=== PATIENT | female | born 1945 | race Caucasian/White ===

== ENCOUNTER 2018-06-08 07:44 | Day surgery (SDC) | payer MEDICARE, OTHER ==
--- NOTE | 2018-06-08 07:04 | PCM.HP ---
H&P History of Present Illness - General Date of Service: 06/08/18 Admit Problem/Dx: positive FIT, family hx of colon cancer Source of Information: Patient - History of Present Illness Initial Comments - Free Text/Narative: The patient is a 73-year-old female referred by Dr. Mina for positive FIT The patient presents today for diagnostic colonoscopy. She was last evaluated in the clinic on 04/24. She denies changes to her medical history since that visit, with the exception of starting Lasix on 04/25 for lower leg edema after starting Prednisone. She did complete the colonoscopy prep. Stools were yellow . The patient denies any constipation/ diarrhea/ hematochezia/ melena/blood on tissue paper/hemorrhoids. Has 1soft, brown, formed, BMs daily. Bowel movements are described as regular and easy to pass. No unintentional weight loss. No change in stool caliber. No abdominal pain. Denies history of ulcerative colitis or Crohn's disease. Denies any family history of inflammatory bowel disease. Her mother had colon cancer. Last colonoscopy was never. No history of reflux, heartburn, nausea, vomiting, or dysphagia. Last EGD was never. - Related Data Allergies/Adverse Reactions: Allergies Allergy/AdvReac Type Severity Reaction Status Date / Time canagliflozin [From Invokana] Allergy Rash Verified 06/07/18 14:39 doxycycline Allergy Diarrhea Verified 06/07/18 14:39 latex Allergy Hives Verified 06/07/18 14:39 Home Medications: Home Meds Allopurinol 100 mg PO Q48H 12/20/16 [History] Alpha Lipoic Acid 600 mg PO QPM 12/20/16 [History] Amitriptyline [Elavil] 25 mg PO DAILY 12/20/16 [History] Insulin Aspart [NovoLOG] 1 unit SQ ASDIRECTED 12/20/16 [History] Liraglutide [Victoza] 1.8 mg SQ DAILY 12/20/16 [History] Losartan [Cozaar] 50 mg PO DAILY 12/20/16 [History] Simvastatin 40 mg PO DAILY 12/20/16 [History] Aspirin [Stebbins Aspirin] 81 mg PO DAILY 06/07/18 [History] Cholecalciferol (Vitamin D3) [Vitamin D3] 1,000 unit PO DAILY 06/07/18 [History] Estradiol [Estrace] 0.5 mg PO DAILY 06/07/18 [History] Furosemide [Lasix] 20 mg PO DAILY 06/07/18 [History] Insulin Degludec [Tresiba Flextouch U-100] 46 units SQ BEDTIME 06/07/18 [History ] Levothyroxine 75 mcg PO DAILY 06/07/18 [History] Multivitamin [Men's Multi-Vitamin] 1 tab PO DAILY 06/07/18 [History] predniSONE [Prednisone] 5 mg PO DAILY 06/07/18 [History] Past Medical History HEENT History: Reports: Impaired Vision, Other (See Below) Other HEENT History: wears glasses, has dentures Cardiovascular History: Reports: Arrhythmia, High Cholesterol, Hypertension, Other (See Below) Other Cardiovascular History: heart disease, hypotension, ventricular arrhythmia Respiratory History: Reports: Sleep Apnea, SOB, Other (See Below) Other Respiratory History: URI, emphysema Gastrointestinal History: Reports: None Genitourinary History: Reports: Other (See Below) Other Genitourinary History: vaginitis 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: , 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 Other OB/BYN History: HPV Musculoskeletal History: Reports: Gout, Other (See Below) Other Musculoskeletal History: carpal tunnel syndrome, dysarthrosis, polyosteroarthritis, polymyaglica rhematica, right sided thoracic outlet syndrome Neurological History: Reports: Other (See Below) Other Neuro History: syncope, cerviclagia, dizziness, mononeuritis, nerve repair Psychiatric History: Reports: None Endocrine/Metabolic History: Reports: Diabetes, Type II, Hypothyroidism, Vitamin D Deficiency Hematologic History: Reports: None Immunologic History: Reports: None Oncologic (Cancer) History: Reports: None Dermatologic History: Reports: Other (See Below) Other Dermatologic History: skin lesion - Infectious Disease History Infectious Disease History: Reports: None - Past Surgical History Head Surgeries/Procedures: Reports: None HEENT Surgical History: Reports: Oral Surgery Cardiovascular Surgical History: Reports: None Respiratory Surgical History: Reports: None GI Surgical History: Reports: Bariatric Procedure Female Surgical History: Reports: Hysterectomy Endocrine Surgical History: Reports: None Musculoskeletal Surgical History: Reports: Carpal Tunnel Dermatological Surgical History: Reports: None Social & Family History - Family History Family Medical History: Noncontributory Respiratory: Reports: Asthma Endocrine/Metabolic: Reports: Diabetes, type II Oncologic: Reports: Bone, Colon, Prostate, Thyroid - Tobacco Use Smoking Status *Q: Former Smoker Used Tobacco, but Quit: Yes Month/Year Tobacco Last Used: 1992 - Caffeine Use Caffeine Use: Reports: Coffee - Recreational Drug Use Recreational Drug Use: No Drug Use in Last 12 Months: No H&P Review of Systems - Review of Systems: Review Of Systems: See Below Free Text/Narrative: Denies any exertional chest pain. She has some exertional shortness of breath with stair climbing. Activity is limited due to knee pain with polymyalgia rheumatica. No history of any easy bleeding or bruising. No personal or familial history of clotting or bleeding disorders. No history of anesthetic complications. No history of familial anesthetic complications. Denies presence/history of chest pain, palpitations. Has been told she has a fast heart beat. She has noted some lower extremity edema, with prednisone use. NO: dyspnea at rest, orthopnea, claudication, wheezing. Has obstructive sleep apnea, uses CPAP. NO: chronic cough, upper respiratory symptoms in the last two weeks. No history of blood thinner use, with exception of aspirin. No history of anemia. NO: joint replacement and heart valve replacement. No history of seizure or stroke. No fever, chills, or nightsweats. No prior cardiology or pulmonology visits. EK, sinus tachycardia, low voltage precordial leads, poor R wave progression, "? LUE" per EKG printout interpretation per Dr. Mina Echo: 2015-reviewed, see prior note 04/24 Stress test: 2008. NM portion showed no exercise induced ischemia or infarct. Patient had a syncopal spell with second degree heart block induced by adenosine , mild chest pressure with no significant ST wave changes All other systems reviewed and were negative except as per history of present illness. Exam - Exam Exam: See Below - Exam General: Alert, Oriented, Cooperative HEENT: Conjunctiva Clear Lungs: Clear to Auscultation, Normal Respiratory Effort Cardiovascular: Regular Rate, Regular Rhythm, Normal S1, Normal S2 GI/Abdominal Exam: Normal Bowel Sounds, Soft, Non-Tender, Other (obese ) Back Exam: Normal Inspection Extremities: Normal Inspection, Other (BLE mild/moderate edema, trace pitting) Peripheral Pulses: 2+: Radial (L), Radial (R) Skin: Warm, Dry, Intact Neuro Extensive - Mental Status: Alert, Oriented x3, Normal Mood/Affect, Normal Cognition, Memory Intact Psychiatric: Alert, Normal Affect, Normal Mood - Problem List (1) Positive FIT (fecal immunochemical test) SNOMED Code(s): 351111057 ICD Code: R19.5 - OTHER FECAL ABNORMALITIES Status: Acute Current Visit: No (2) Family history of colon cancer SNOMED Code(s): 670506914 ICD Code: Z80.0 - FAMILY HISTORY OF MALIGNANT NEOPLASM OF DIGESTIVE ORGANS Status: Acute Current Visit: No Problem List Initiated/Reviewed/Updated: Yes Orders Last 24hrs: Active Orders 24 hr Category Date Time Status Blood Glucose Check, Bedside [] ONETIME Care 06/08/18 00:01 Active Peripheral IV Care [] . DIRECTED Care 06/08/18 00:01 Active Verify Patient Consent Obtain [] ASDIRECTED Care 06/08/18 00:01 Active Lactated Ringers [Ringers, Lactated] 1,000 ml Med 06/08/18 00:01 Active IV ASDIRECTED Lidocaine 1%/Sod Bicarbonate [Buffered Lidocaine 1% in Med 06/08/18 00:01 Active NS 8.4%] 0.25 ml IDERM ONETIME PRN Sodium Chloride 0.9% [Saline Flush] Med 06/08/18 00:01 Active 10 ml FLUSH ASDIRECTED PRN Medication Administration Instruction [OM.PC] Routine Oth 06/08/18 00:01 Ordered Peripheral IV Insertion Adult [OM.PC] Routine Oth 06/08/18 00:01 Ordered Medication Orders Lactated Ringer's (Ringers, Lactated) 1,000 mls @ 125 mls/hr IV ASDIRECTED YAEL Stop: 06/08/18 23:00 Lidocaine/Sodium Bicarbonate (Buffered Lidocaine 1% In Ns 8.4%) 0.25 ml IDERM ONETIME PRN PRN Reason: Prior to IV Start Stop: 06/08/18 18:00 Sodium Chloride (Saline Flush) 10 ml FLUSH ASDIRECTED PRN PRN Reason: Keep Vein Open Stop: 06/08/18 18:00 Assessment/Plan Comment:: 73yr female with positive FIT, family hx of colon cancer, need for diagnostic colonoscopy Denies exertionalchest pain. Has exertional shortness of breath with stair climbing. She is deconditioned. Sleep apnea, chronic oral steroid use PLAN: We discussed performing a diagnostic colonoscopy. We discussed the procedure and post operative expectations. This procedure will be done at [facility] due to BMI 40.01. Previously -Discussed completing EGD due to positive FIT, patient declined. I personally reviewed the patient's previous medical records and laboratory studies. Patient verbalized understanding and agreed with care plan. HOPE [facility]
[~2018-06-08 07:44] MED LIST: Lactated Ringers 1,000 ML IV SCH; Lidocaine 1% 4 ML ONE; Lidocaine 1%/Sod Bicarbonate in NS 8.4% 1 ML Syringe IDERM PRN; Propofol 200 MG/20 ML SDV ONE; Sodium Chloride 0.9% 10 ML Syringe FLUSH PRN; fentaNYL 100 MCG/2 ML SDV ONE
--- NOTE | 2018-06-08 08:24 | PCM.PREANE ---
Preanesthetic Assessment - Anesthesia/Transfusion/Family Hx Anesthesia History: Prior Anesthesia Without Reaction Family History of Anesthesia Reaction: No Transfusion History: No Prior Transfusion(s) - Review of Systems General: Fatigue Pulmonary: No Symptoms Cardiovascular: No Symptoms Gastrointestinal: No Symptoms Neurological: Numbness (fingers) Other: Reports: Diabetes (123 this am), Thyroid Problems - Physical Assessment NPO Status Date: 06/07/18 NPO Status Time: 00:00 Pulse: 94 O2 Sat by Pulse Oximetry: 96 Respiratory Rate: 18 Blood Pressure: 136/56 Temperature: 36.3 C Height: 1.47 m Weight: 86.183 kg ASA Class: 3 Mental Status: Alert & Oriented x3 Airway Class: Mallampati = 3 Dentition: Reports: Dentures Thyro-Mental Finger Breadths: 2 Mouth Opening Finger Breadths: 2 ROM/Head Extension: Full Lungs: Clear to Auscultation, Normal Respiratory Effort Cardiovascular: Regular Rate, Regular Rhythm - Allergies Allergies/Adverse Reactions: Allergies Allergy/AdvReac Type Severity Reaction Status Date / Time canagliflozin [From Invokana] Allergy Rash Verified 06/07/18 14:39 doxycycline Allergy Diarrhea Verified 06/07/18 14:39 latex Allergy Hives Verified 06/07/18 14:39 - Blood Blood Available: No Product(s) Available: None - Anesthesia Plan Pre-Op Medication Ordered: None - Acknowledgements Anesthesia Type Planned: MAC Pt an Appropriate Candidate for the Planned Anesthesia: Yes Alternatives and Risks of Anesthesia Discussed w Pt/Guardian: Yes Pt/Guardian Understands and Agrees with Anesthesia Plan: Yes PreAnesthesia Questionnaire HEENT History: Reports: Impaired Vision, Other (See Below) Other HEENT History: wears glasses, has dentures Cardiovascular History: Reports: Arrhythmia, High Cholesterol, Hypertension, Other (See Below) Other Cardiovascular History: heart disease, hypotension, ventricular arrhythmia Respiratory History: Reports: Sleep Apnea, SOB, Other (See Below) Other Respiratory History: URI, emphysema Gastrointestinal History: Reports: None Genitourinary History: Reports: Other (See Below) Other Genitourinary History: vaginitis 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: , 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 Other OB/BYN History: HPV Musculoskeletal History: Reports: Gout, Other (See Below) Other Musculoskeletal History: carpal tunnel syndrome, dysarthrosis, polyosteroarthritis, polymyaglica rhematica, right sided thoracic outlet syndrome Neurological History: Reports: Other (See Below) Other Neuro History: syncope, cerviclagia, dizziness, mononeuritis, nerve repair Psychiatric History: Reports: None Endocrine/Metabolic History: Reports: Diabetes, Type II, Hypothyroidism, Vitamin D Deficiency Hematologic History: Reports: None Immunologic History: Reports: None Oncologic (Cancer) History: Reports: None Dermatologic History: Reports: Other (See Below) Other Dermatologic History: skin lesion - Infectious Disease History Infectious Disease History: Reports: None - Past Surgical History Head Surgeries/Procedures: Reports: None HEENT Surgical History: Reports: Oral Surgery Cardiovascular Surgical History: Reports: None Respiratory Surgical History: Reports: None GI Surgical History: Reports: Bariatric Procedure Female Surgical History: Reports: Hysterectomy Endocrine Surgical History: Reports: None Musculoskeletal Surgical History: Reports: Carpal Tunnel Dermatological Surgical History: Reports: None - SUBSTANCE USE Smoking Status *Q: Former Smoker Recreational Drug Use History: No - HOME MEDS Home Medications: Home Meds Allopurinol 100 mg PO Q48H 12/20/16 [History] Alpha Lipoic Acid 600 mg PO QPM 12/20/16 [History] Amitriptyline [Elavil] 25 mg PO DAILY 12/20/16 [History] Insulin Aspart [NovoLOG] 1 unit SQ ASDIRECTED 12/20/16 [History] Liraglutide [Victoza] 1.8 mg SQ DAILY 12/20/16 [History] Losartan [Cozaar] 50 mg PO DAILY 12/20/16 [History] Simvastatin 40 mg PO DAILY 12/20/16 [History] Aspirin [Darden Aspirin] 81 mg PO DAILY 06/07/18 [History] Cholecalciferol (Vitamin D3) [Vitamin D3] 1,000 unit PO DAILY 06/07/18 [History] Estradiol [Estrace] 0.5 mg PO DAILY 06/07/18 [History] Furosemide [Lasix] 20 mg PO DAILY 06/07/18 [History] Insulin Degludec [Tresiba Flextouch U-100] 46 units SQ BEDTIME 06/07/18 [History ] Levothyroxine 75 mcg PO DAILY 06/07/18 [History] Multivitamin [Men's Multi-Vitamin] 1 tab PO DAILY 06/07/18 [History] predniSONE [Prednisone] 5 mg PO DAILY 06/07/18 [History] - CURRENT (IN HOUSE) MEDS Current Meds: Current Medications Lactated Ringer's (Ringers, Lactated) 1,000 mls @ 125 mls/hr IV ASDIRECTED YAEL Stop: 06/08/18 23:00 Lidocaine/Sodium Bicarbonate (Buffered Lidocaine 1% In Ns 8.4%) 0.25 ml IDERM ONETIME PRN PRN Reason: Prior to IV Start Stop: 06/08/18 18:00 Sodium Chloride (Saline Flush) 10 ml FLUSH ASDIRECTED PRN PRN Reason: Keep Vein Open Stop: 06/08/18 18:00 Discontinued Medications Fentanyl (Sublimaze) Confirm Administered Dose 100 mcg .ROUTE .STK-MED ONE Stop: 06/08/18 07:37 Lidocaine HCl (Xylocaine-Mpf 1%) Confirm Administered Dose 4 mls @ as directed .ROUTE .STK-MED ONE Stop: 06/08/18 07:42 Propofol (Diprivan 20 Ml) Confirm Administered Dose 200 mg .ROUTE .STK-MED ONE Stop: 06/08/18 07:37
[2018-06-08] MEDS ORDERED: Midazolam 1 MG/ML 2 ML SDV ONE (08:31)
[2018-06-08] MEDS ORDERED: Propofol 200 MG/20 ML SDV ONE ×2 (08:31→09:23)
[2018-06-08] MEDS ORDERED: fentaNYL 100 MCG/2 ML SDV ONE (08:31)
--- NOTE | 2018-06-08 09:53 | PCM.OPNOTE ---
- General Post-Op/Procedure Note Date of Surgery/Procedure: 06/08/18 Operative Procedure(s): colonoscopy to cecum polypectomy times 2 Pre Op Diagnosis: positive fit test Post-Op Diagnosis: Same Anesthesia Technique: MAC Primary Surgeon: Micheal Jeff EBL in mLs: 0 Complications: None Condition: Good
--- NOTE | 2018-06-08 09:55 | PCM48HPAN ---
Post Anesthesia Note - EVALUATION WITHIN 48HRS OF ANESTHETIC Vital Signs in Normal Range: Yes Patient Participated in Evaluation: Yes Respiratory Function Stable: Yes Airway Patent: Yes Cardiovascular Function Stable: Yes Hydration Status Stable: Yes Pain Control Satisfactory: Yes Nausea and Vomiting Control Satisfactory: Yes Mental Status Recovered: Yes Pulse Rate: 99 SaO2: 95 Resp Rate: 18 Temperature: 36.1 C Blood Pressure: 126/69
[2018-06-08 10:32] VITALS: BP 112/58
--- NOTE | 2018-06-08 15:23 | OR ---
DATE OF OPERATION: 06/08/2018 SURGEON: Micheal Jeff MD PREOPERATIVE DIAGNOSIS: Positive FIT test. POSTOPERATIVE DIAGNOSIS: Positive FIT test. OPERATION PERFORMED: Colonoscopy to cecum with polypectomy x2. Removal of two 1 cm polyps in the ascending colon adjacent to each other. The polyps were removed by cautery snare and were complete. ANESTHESIA: Procedure done under IV sedation. FINDINGS: Two colonic polyps in the ascending colon, each about 1 cm, and had a broad base. There were no angiodysplasias, large tumor masses, ulcerations, diverticulum, or notable hemorrhoids. DESCRIPTION OF PROCEDURE: The patient was taken to the endoscopy room, placed in a supine position, connected to monitoring equipment, given IV sedation, and placed in the left lateral position. Perianal area was inspected and was normal. Rectal exam showed good sphincter tone. A video Olympus colonoscope was then introduced into the rectum and threaded up without problem to the cecum, where the appendicular orifice was noted and photographed. Prep was excellent. [place] cleansing score grade A. The scope was slowly withdrawn showing the cecum, ascending colon, transverse colon, descending colon, sigmoid colon, and rectum. Two polyps were noted in the ascending colon just adjacent to each other, and they both were lassoed with cautery snare and then short-burst coagulation current applied, and they were cleanly removed without any bleeding. The polyps could not be sucked up into the trap and thus were both captured with a snare with a net. They were removed and since they were adjacent to each other, they were sent in the same container. The patient tolerated the procedure, was sent to recovery room in a stable condition, and will be followed up in the clinic. ESTIMATED BLOOD LOSS: MMODAL /[id number]
== END 2018-06-08 10:39 | disposition home or self-care (01) ==
LOC: JD.SDS 07:44
PROVIDERS: ATTEND Surgery
DX: R19.5 Other fecal abnormalities (principal); D12.2 Benign neoplasm of ascending colon; I10 Essential (primary) hypertension; G47.30 Sleep apnea, unspecified; M10.9 Gout, unspecified; E03.9 Hypothyroidism, unspecified; E11.9 Type 2 diabetes mellitus without complications; E55.9 Vitamin D deficiency, unspecified; E78.00 Pure hypercholesterolemia, unspecified; Z88.1 Allergy status to other antibiotic agents; Z88.8 Allergy status to other drugs, medicaments and biological substances; Z91.040 Latex allergy status; Z79.4 Long term (current) use of insulin; Z79.82 Long term (current) use of aspirin; Z79.899 Other long term (current) drug therapy; Z87.891 Personal history of nicotine dependence; Z80.0 Family history of malignant neoplasm of digestive organs
CPT/HCPCS: 45385; J2250; J2704; J7120; 00811; J2001; J3010

== ENCOUNTER 2022-08-12 07:35 | Day surgery (SDC) | payer MEDICARE, OTHER ==
[2022-08-12] MEDS: Polymyxin B/Trimethoprim 10 ML Bottle EYERT SCH ×3 (07:25→09:01)
[2022-08-12] MEDS: Brimonidine 0.2% Ophth Soln 5 ML Bottle EYERT SCH ×3 (07:29→09:01)
[2022-08-12] MEDS: Phenylephrine 2.5% Ophth Soln 2 ML Bot EYERT SCH ×5 (07:34→08:41)
[~2022-08-12 07:35] MED LIST changes: +Cefuroxime 10 MG/ML SYRINGE EYERT SCH; -Lactated Ringers 1,000 ML IV SCH; -Lidocaine 1% 4 ML ONE; +Lidocaine 1% PF 2 ML SDV INJECT SCH; -Lidocaine 1%/Sod Bicarbonate in NS 8.4% 1 ML Syringe IDERM PRN; +Pilocarpine 4% Ophth Soln 15 ML Bot EYERT SCH; -Propofol 200 MG/20 ML SDV ONE; -Sodium Chloride 0.9% 10 ML Syringe FLUSH PRN; -fentaNYL 100 MCG/2 ML SDV ONE
[2022-08-12] MEDS: Tropicamide 1% Ophth Soln 15 ML Bottle EYERT SCH ×4 (07:37→08:12)
[2022-08-12 07:38] VITALS: PULSE 91
[2022-08-12] MEDS: Tetracaine HCl/PF 0.5% 4 ML Bottle EYEBOTH SCH ×4 (08:30→08:51)
[2022-08-12 09:18] VITALS: BP 118/67
== END 2022-08-12 09:13 | disposition home or self-care (01) ==
LOC: JD.SDS 07:35
PROVIDERS: ATTEND Ophthalmology
DX: E10.36 Type 1 diabetes mellitus with diabetic cataract (principal); E78.00 Pure hypercholesterolemia, unspecified; I10 Essential (primary) hypertension; G47.30 Sleep apnea, unspecified; E66.9 Obesity, unspecified; E03.9 Hypothyroidism, unspecified; Z91.040 Latex allergy status; Z88.8 Allergy status to other drugs, medicaments and biological substances; Z98.890 Other specified postprocedural states; Z87.891 Personal history of nicotine dependence
CPT/HCPCS: 66984; J0697; C1780

== ENCOUNTER 2022-09-09 11:08 | Day surgery (SDC) | payer MEDICARE, OTHER ==
[~2022-09-09 11:08] MED LIST changes: +Cefuroxime 10 MG/ML SYRINGE EYELF SCH; -Cefuroxime 10 MG/ML SYRINGE EYERT SCH; +Pilocarpine 4% Ophth Soln 15 ML Bot EYELF SCH; -Pilocarpine 4% Ophth Soln 15 ML Bot EYERT SCH
[2022-09-09] MEDS: Polymyxin B/Trimethoprim 10 ML Bottle EYELF SCH ×3 (11:28→13:10)
[2022-09-09] MEDS: Brimonidine 0.2% Ophth Soln 5 ML Bottle EYELF SCH ×3 (11:33→13:10)
[2022-09-09] MEDS: Phenylephrine 2.5% Ophth Soln 2 ML Bot EYELF SCH ×5 (11:37→12:50)
[2022-09-09] MEDS: Tropicamide 1% Ophth Soln 15 ML Bottle EYELF SCH ×4 (11:42→12:25)
[2022-09-09] MEDS: Tetracaine HCl/PF 0.5% 4 ML Bottle EYEBOTH SCH ×4 (12:39→12:59)
[2022-09-09 13:42] VITALS: BP 108/79; PULSE 89
== END 2022-09-09 13:29 | disposition home or self-care (01) ==
LOC: JD.SDS 11:08
PROVIDERS: ATTEND Ophthalmology
DX: E10.36 Type 1 diabetes mellitus with diabetic cataract (principal); H25.812 Combined forms of age-related cataract, left eye; H43.813 Vitreous degeneration, bilateral; M35.3 Polymyalgia rheumatica; H40.042 Steroid responder, left eye; M45.6 Ankylosing spondylitis lumbar region; I10 Essential (primary) hypertension; M19.90 Unspecified osteoarthritis, unspecified site; E78.00 Pure hypercholesterolemia, unspecified; E66.9 Obesity, unspecified; E03.9 Hypothyroidism, unspecified; Z68.36 Body mass index [BMI] 36.0-36.9, adult; Z96.1 Presence of intraocular lens; Z90.710 Acquired absence of both cervix and uterus; Z98.890 Other specified postprocedural states; Z87.891 Personal history of nicotine dependence; Z79.890 Hormone replacement therapy; Z79.899 Other long term (current) drug therapy; Z88.1 Allergy status to other antibiotic agents; Z91.040 Latex allergy status; Z79.4 Long term (current) use of insulin
CPT/HCPCS: 66984; J0697; C1780

== ENCOUNTER → 2023-05-04 | Day surgery (SDC) | payer MEDICARE, OTHER ==
[~2023-05-04] MED LIST changes: +50% Dextrose in Water 50 ML Syringe IVPUSH PRN; +Acetaminophen 325 MG Tab PO ONE; +Bupivacaine 0.5%/EPINEPHrine 1:200,000 50 ML MDV ONE; -Cefuroxime 10 MG/ML SYRINGE EYELF SCH; +Dexamethasone 4 MG/ML 5 ML MDV ONE; +Dextrose 5%-Lactated Ringers 1,000 ML IV SCH; +Gabapentin 300 MG Cap PO SCH; +HYDROmorphone 0.5 MG/0.5 ML Syringe IVPUSH PRN; +Lactated Ringers 1,000 ML IV SCH; +Lidocaine 1% 2 ML ONE; +Lidocaine 1% 30 ML SDV ONE; -Lidocaine 1% PF 2 ML SDV INJECT SCH; +Midazolam 1 MG/ML 2 ML SDV ONE; +Ondansetron 4 MG/2 ML SDV IVPUSH PRN; +Ondansetron 4 MG/2 ML SDV ONE; -Pilocarpine 4% Ophth Soln 15 ML Bot EYELF SCH; +Propofol 200 MG/20 ML SDV ONE; +Rocuronium 50 MG/5 ML Vial ONE; +Sodium Chloride 0.9% 10 ML Syringe FLUSH PRN; +Sodium Chloride 0.9% 10 ML Syringe FLUSH SCH; +Sugammadex Sodium 200 MG/2 ML VIAL ONE; +ceFAZolin 2 GM Vial ONE; +fentaNYL 100 MCG/2 ML SDV IVPUSH PRN; +fentaNYL 100 MCG/2 ML SDV ONE
[2023-05-04 17:56] VITALS: BP 105/87; PULSE 74
== END | disposition home or self-care (01) ==
LOC: JD.SDS 10:05
PROVIDERS: ATTEND Surgery
DX: R11.0 Nausea (principal); R63.4 Abnormal weight loss; I10 Essential (primary) hypertension; E11.9 Type 2 diabetes mellitus without complications; G47.30 Sleep apnea, unspecified; E78.00 Pure hypercholesterolemia, unspecified; E03.9 Hypothyroidism, unspecified; E66.9 Obesity, unspecified; M10.9 Gout, unspecified; M81.0 Age-related osteoporosis without current pathological fracture; Z68.35 Body mass index [BMI] 35.0-35.9, adult; Z91.040 Latex allergy status; Z88.1 Allergy status to other antibiotic agents; Z98.890 Other specified postprocedural states; Z79.899 Other long term (current) drug therapy; Z79.4 Long term (current) use of insulin; Z79.890 Hormone replacement therapy; Z88.8 Allergy status to other drugs, medicaments and biological substances; Z87.891 Personal history of nicotine dependence; Z90.710 Acquired absence of both cervix and uterus; Z79.82 Long term (current) use of aspirin
CPT/HCPCS: 43774; A9270; J0690; J1100; J2250; J2405; J2704; J3010; J3490; J7121